=== PATIENT | male | born 1990 ===

== ENCOUNTER 2016-08-26 19:52 | Emergency (ER) | payer OTHER ==
[~2016-08-26] VITALS: Ht 175.3 cm; Wt 86.6 kg
[2016-08-26 19:58] VITALS: TEMP 37; Ht 175.3 cm; Wt 86.6 kg
[2016-08-26 20:32] VITALS: O2SAT 99
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
[2016-08-26] MEDS ORDERED: SODIUM CHLORIDE 0.9% 1000ML 1,000 ML IV STA (21:07)
[2016-08-26] MEDS ORDERED: OPTIRAY 320 IV PRN (21:15)
[2016-08-26 21:22] LABS: BASO % 0.3 %; BASO ABS # 0.02 K/uL (0-0.2); COMPLETE YES; EOS % 1.2 %; HEMATOCRIT 43.6 % (42-52); IG% 0.5 %; LYMPH % 33.7 %; LYMPH ABS # 2.54 K/uL (1.2-3.4); MEAN CELL VOLUME 92.4 fL (80-100); MEAN CORPUSCULAR HEMOGLOBIN 32.8 pg (25-34); MEAN CORPUSCULAR HGB CONC 35.6 g/dl (32-36); MEAN PLATELET VOLUME 10.5 fL (7.4-10.4); MONO % 5.8 %; NEUT % 58.5 %; PLATELET COUNT 236 K/uL (130-400); RED BLOOD COUNT 4.72 M/uL (4.7-6.1); WHITE BLOOD COUNT 7.54 K/uL (4.8-10.8)
[2016-08-26 21:29] LABS: PROTHROMBIN TIME (PATIENT) 10.7 SECONDS (9.0-12.0)
--- NOTE | 2016-08-26 21:39 | DIAGNOSTIC IMAGING REPORT ---
LEFT KNEE 1 OR 2 VIEWS ROUTINE CLINICAL HISTORY: Left knee pain following trauma. COMPARISON: None FINDINGS: Alignment of left knee is anatomic. There is no acute fracture. Prepatellar soft tissue swelling is noted. No joint effusion is identified. IMPRESSION: 1. No acute fracture or joint effusion of the left knee. 2. Pre and infrapatellar soft tissue swelling. Electronically signed by: Ventura Bernardo M.D. 08/26/2016 9:38 PM Dictated Date/Time: 08/26/2016 9:37 PM
--- NOTE | 2016-08-26 21:40 | DIAGNOSTIC IMAGING REPORT ---
LEFT ELBOW MIN 3 VIEWS ROUTINE CLINICAL HISTORY: Left elbow pain following trauma. COMPARISON: None FINDINGS: Alignment of left elbow is anatomic. There is no acute fracture or joint effusion. IMPRESSION: No acute fracture or joint effusion of the left elbow. Electronically signed by: Ventura Bernardo M.D. 08/26/2016 9:39 PM Dictated Date/Time: 08/26/2016 9:38 PM
[2016-08-26 21:41] LABS: BUN/CREATININE RATIO 5.8 (10-20); CALCIUM 8.5 mg/dl (8.5-10.1); CREATININE 1.2 mg/dl (0.60-1.40); POTASSIUM 3.5 mmol/L (3.5-5.1)
[2016-08-26 21:44] LABS: ISTAT CREATININE 1.2 mg/dl (0.6-1.3); ISTAT HEMOGLOBIN 16.3 g/dl (14.0-18.0); ISTAT IONIZED CALCIUM 1.09 mmol/l (1.12-1.32)
--- NOTE | 2016-08-26 21:50 | DIAGNOSTIC IMAGING REPORT ---
CT OF THE HEAD WITHOUT CONTRAST CLINICAL HISTORY: Trauma. COMPARISON STUDY: No previous studies for comparison. CT DOSE: 2202.10 mGy.cm TECHNIQUE: Helical axial images of the head were obtained without IV contrast. Automated exposure control was utilized for the study. FINDINGS: No acute intracranial hemorrhage, midline shift or mass effect is present. Ventricular system is normal. Basilar cisterns are patent. There are no extra-axial collections. Meier-white differentiation is maintained. There are left scalp contusions and a laceration. There is no calvarial fracture. IMPRESSION: 1. No acute intracranial findings. 2. Left scalp contusions and a laceration. No calvarial fracture. Electronically signed by: Ventura Bernardo M.D. 08/26/2016 9:49 PM Dictated Date/Time: 08/26/2016 9:47 PM
[2016-08-26 22:00] VITALS: BP 141/88; PULSE 95; O2SAT 97
--- NOTE | 2016-08-26 22:00 | DIAGNOSTIC IMAGING REPORT ---
CT OF THE CHEST WITH IV CONTRAST CLINICAL HISTORY: Trauma. COMPARISON STUDY: No previous studies for comparison. TECHNIQUE: Following IV administration of 119 mL of Optiray-320, helical axial images of the chest were obtained. Images were viewed in the axial, sagittal and coronal planes. IV contrast was administered without complication. FINDINGS: There is no evidence of traumatic injury to the thoracic aorta. The size of the heart is normal. There is no pericardial effusion. There is no pneumothorax or pulmonary contusion. No acute rib or thoracic spine fracture is identified although sensitivity for detection of nondisplaced rib fractures is diminished due to mild motion artifact. The abdomen and pelvis will be reported separately. IMPRESSION: No acute traumatic findings within the chest. Electronically signed by: Ventura Bernardo M.D. 08/26/2016 9:58 PM Dictated Date/Time: 08/26/2016 9:50 PM
--- NOTE | 2016-08-26 22:01 | DIAGNOSTIC IMAGING REPORT ---
CT OF THE CERVICAL SPINE WITHOUT CONTRAST CLINICAL HISTORY: Trauma. COMPARISON STUDY: No previous studies for comparison. TECHNIQUE: Helical axial images of the cervical spine were obtained without IV contrast. Sagittal and coronal reconstructions were viewed. FINDINGS: Alignment of the cervical spine is anatomic. Craniocervical junction is intact. There is no cervical spine fracture. There is no prevertebral edema. Facet joints are intact. IMPRESSION: No acute cervical spine fracture or subluxation. Electronically signed by: Ventura Bernardo M.D. 08/26/2016 10:00 PM Dictated Date/Time: 08/26/2016 9:58 PM
--- NOTE | 2016-08-26 22:07 | DIAGNOSTIC IMAGING REPORT ---
CT OF THE ABDOMEN AND PELVIS WITH CONTRAST CLINICAL HISTORY: Trauma COMPARISON STUDY: None. TECHNIQUE: Following IV administration of 119 mL of Optiray-320, axial images of the abdomen and pelvis were obtained from the lung bases to the proximal femurs. Images were reviewed in the axial, sagittal, and coronal planes. IV contrast was administered without complication. FINDINGS: No hemoperitoneum or pneumoperitoneum is present. There is no evidence of traumatic injury to the liver, spleen, adrenal glands, kidneys or pancreas. Caliber and wall thickness of small and large bowel are normal. There is no free fluid. There is no acute fracture within the pelvis or lumbar spine. IMPRESSION: No acute traumatic findings within the abdomen or pelvis. Electronically signed by: Ventura Bernardo M.D. 08/26/2016 10:05 PM Dictated Date/Time: 08/26/2016 10:01 PM
[2016-08-26 22:30] LABS: URINE APPEARANCE CLEAR (CLEAR); URINE BILIRUBIN NEG (NEG); URINE COLOR YELLOW; URINE NITRITE NEG (NEG); URINE PH 6.5 (4.5-7.5); UROBILINOGEN NEG (NEG); ZZUR CULT IF INDIC CLEAN CATCH NO
[2016-08-26 22:33] LABS: MANUAL MICROSCOPIC REQUIRED? NO; REVIEW REQ? NO
[2016-08-26 22:50] LABS: BENZODIAZEPINE, URINE NEG (NEG); COCAINE,URINE NEG (NEG); PHENCYCLIDINE, URINE NEG (NEG)
[2016-08-27] MEDS ORDERED: OXYC1TAB3 PO (09:20)
== END 2016-08-26 22:55 | disposition home or self-care (01) ==
LOC: C.EDB 19:55
DX: F10.129 Alcohol abuse with intoxication, unspecified (principal); V23.9XXA Unspecified motorcycle rider injured in collision with car, pick-up truck or van in traffic accident, initial encounter; S00.81XA Abrasion of other part of head, initial encounter; S50.312A Abrasion of left elbow, initial encounter; S80.212A Abrasion, left knee, initial encounter; S40.212A Abrasion of left shoulder, initial encounter; S20.312A Abrasion of left front wall of thorax, initial encounter; S20.412A Abrasion of left back wall of thorax, initial encounter; S30.811A Abrasion of abdominal wall, initial encounter

== ENCOUNTER → 2016-08-26 | Outpatient (CLI) | payer OTHER ==
[~2016-08-26] MED LIST: OXYC1TAB3 PO
== END | disposition home or self-care (01) ==
LOC: C.LAB 20:05
DX: Z02.83 Encounter for blood-alcohol and blood-drug test (principal)

== ENCOUNTER 2016-08-27 05:11 | Emergency (ER) | payer OTHER ==
[~2016-08-27] VITALS: Ht 175.3 cm; Wt 84.2 kg
[2016-08-27 05:20] VITALS: TEMP 36.5; Ht 175.3 cm; Wt 84.2 kg
[2016-08-27 05:39] VITALS: O2SAT 97
[2016-08-27] MEDS ORDERED: SODIUM CHLORIDE 0.9% 1000ML 1,000 ML IV STA (06:49)
[2016-08-27] MEDS ORDERED: ONDANSETRON INJ 2 MG/ML 2 ML VIAL IV STA (07:14)
[2016-08-27] MEDS ORDERED: MoRPHine SULFATE 4 MG/ML 1 ML CARP\\VIAL IV PRN (07:15)
[2016-08-27 07:41] LABS: HEMATOCRIT 43.1 % (42-52); MEAN CELL VOLUME 94.5 fL (80-100); MEAN CORPUSCULAR HEMOGLOBIN 32.9 pg (25-34); MEAN CORPUSCULAR HGB CONC 34.8 g/dl (32-36); MEAN PLATELET VOLUME 10.8 fL (7.4-10.4); PLATELET COUNT 219 K/uL (130-400); RED BLOOD COUNT 4.56 M/uL (4.7-6.1); WHITE BLOOD COUNT 14.87 K/uL (4.8-10.8)
[2016-08-27] MEDS ORDERED: OXYC1TAB3 PO (09:20)
[2016-08-27 09:34] VITALS: BP 147/82; PULSE 108; O2SAT 98
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
== END 2016-08-27 09:36 | disposition home or self-care (01) ==
LOC: C.EDB 05:12
DX: R55 Syncope and collapse (principal); S80.212A Abrasion, left knee, initial encounter; V29.9XXA Motorcycle rider (driver) (passenger) injured in unspecified traffic accident, initial encounter